=== PATIENT | female | born 1945 | race Caucasian/White ===

== ENCOUNTER 2020-09-18 03:57 | Inpatient (IN) | payer MEDICARE, OTHER ==
[~2020-09-18] VITALS: Ht 160 cm; Wt 46.3 kg
[~2020-09-18 03:57] MED LIST: ALENDRONATE SOD70 MG PO; ALLERGY10 MG PO; BENTYL 20MG TAB20 MG PO; CLOPIDOGREL75 MG PO; CYANOCOBAL1000 MCG/1 INJ; DICLOFENAC SOD100 GM TP; DYMISTA NASAL S23 GM; ESOMEPRAZOLE MA40 MG PO; FLEXERIL 10 MG10 MG PO; LOPRESSOR50 MG PO; NAMENDA PO; NORVASC2.5 MG PO; PRINIVIL20 MG PO; RANEXA500 MG PO; REMERON15 MG PO; VENTOLIN HFA 66.7 GM INH; ZOCOR20 MG PO
[2020-09-18 06:07] LABS: HEMOGLOBIN 14.7 gm/dl (12.3-15.3); RED BLOOD COUNT 4.53 M/UL (4.00-5.10)
[2020-09-18] MEDS ORDERED: LOMOTIL 2.5-0.1 EACH PO (19:19)
[2020-09-18] MEDS ORDERED: CALCIUM 500 +1 EAC1 PO (19:19)
[2020-09-18] MEDS ORDERED: NEXIUM40 MG PO (19:20)
[2020-09-18] MEDS ORDERED: PEPCID40 MG PO (19:21)
[2020-09-18] MEDS ORDERED: HYDROCODON-ACE1 EAC2 PO (19:21)
[2020-09-18] MEDS ORDERED: ZOFRAN4 MG PO (19:24)
[2020-09-18] MEDS ORDERED: NITROSTAT 0.40.4 MG SL (19:24)
[2020-09-18] MEDS ORDERED: PAXIL40 MG PO (19:24)
[2020-09-18] MEDS ORDERED: MIRAPEX0.25 MG PO (19:25)
[2020-09-18] MEDS ORDERED: RANEXA500 MG PO (19:25)
[2020-09-18] MEDS ORDERED: HYTRIN CAP 1 MG1 MG PO (19:26)
[2020-09-19 04:31] LABS: HEMOGLOBIN 12.2 gm/dl (12.3-15.3); RED BLOOD COUNT 3.85 M/UL (4.00-5.10); WHITE BLOOD COUNT 8.4 K/UL (4.5-11.0)
[2020-09-21 06:36] LABS: HEMOGLOBIN 13.5 gm/dl (12.3-15.3); RED BLOOD COUNT 4.22 M/UL (4.00-5.10); WHITE BLOOD COUNT 9.6 K/UL (4.5-11.0)
[2020-09-21 07:01] LABS: BUN/CREATININE RATIO 7 (0-10)
[2020-09-22 04:09] LABS: HEMOGLOBIN 12.5 gm/dl (12.3-15.3); RED BLOOD COUNT 3.94 M/UL (4.00-5.10); WHITE BLOOD COUNT 9.3 K/UL (4.5-11.0)
[2020-09-22 04:57] LABS: BUN/CREATININE RATIO 5 (0-10)
[2020-09-22] MEDS ORDERED: FLAGYL500 MG PO (11:10)
[2020-09-22] MEDS ORDERED: LEVOFLOXACIN500 MG PO (11:10)
[2020-09-22] MEDS ORDERED: COL-RITE100 MG PO (11:15)
--- NOTE | 2020-09-22 14:51 | NUR ---
spoke with marlo in case managment about [facility] not having patients full demographic information. she said she emailed it 13 minutes ago and they should have everything they need.
== END 2020-09-22 15:07 | disposition home or self-care (01) | DRG 389 ==
LOC: MED SURG 4 05:41
PROVIDERS: Family Medicine; Internal Medicine; ADMIT Internal Medicine
DX: K56.600 Partial intestinal obstruction, unspecified as to cause (principal); N17.9 Acute kidney failure, unspecified; I13.0 Hypertensive heart and chronic kidney disease with heart failure and stage 1 through stage 4 chronic kidney disease, or unspecified chronic kidney disease; N18.4 Chronic kidney disease, stage 4 (severe); K52.9 Noninfective gastroenteritis and colitis, unspecified; I50.9 Heart failure, unspecified; Z20.822 Contact with and (suspected) exposure to COVID-19; I25.10 Atherosclerotic heart disease of native coronary artery without angina pectoris; E87.5 Hyperkalemia; E86.1 Hypovolemia; F03.90 Unspecified dementia, unspecified severity, without behavioral disturbance, psychotic disturbance, mood disturbance, and anxiety; E78.5 Hyperlipidemia, unspecified; F17.210 Nicotine dependence, cigarettes, uncomplicated; N30.90 Cystitis, unspecified without hematuria; J44.9 Chronic obstructive pulmonary disease, unspecified; Z79.01 Long term (current) use of anticoagulants; E16.2 Hypoglycemia, unspecified; Z95.2 Presence of prosthetic heart valve; Z88.0 Allergy status to penicillin; Z88.8 Allergy status to other drugs, medicaments and biological substances; Z95.1 Presence of aortocoronary bypass graft; Z95.5 Presence of coronary angioplasty implant and graft; Z90.710 Acquired absence of both cervix and uterus; Z98.51 Tubal ligation status; Z90.49 Acquired absence of other specified parts of digestive tract; Z80.42 Family history of malignant neoplasm of prostate; Z82.49 Family history of ischemic heart disease and other diseases of the circulatory system
CPT/HCPCS: 36415; 74018; 80048; 80053; 82962; 83605; 83735; 84132; 85025; 85027; 85652; 86140; 87086; 93005; 94664; 94760; 97161; C9113; J0692; J2270; J2543; J7030

== ENCOUNTER 2020-11-03 15:55 | Emergency (ER) | payer MEDICARE, OTHER ==
[~2020-11-03 15:55] MED LIST changes: +CALCIUM 500 +1 EAC1 PO; +COL-RITE100 MG PO; +FLAGYL500 MG PO; +HYDROCODON-ACE1 EAC2 PO; +HYTRIN CAP 1 MG1 MG PO; +LEVOFLOXACIN500 MG PO; +LOMOTIL 2.5-0.1 EACH PO; +MIRAPEX0.25 MG PO; +NEXIUM40 MG PO; +NITROSTAT 0.40.4 MG SL; +PAXIL40 MG PO; +PEPCID40 MG PO; +ZOFRAN4 MG PO
[2020-11-03 16:49] LABS: HEMOGLOBIN 13.2 gm/dl (12.3-15.3); RED BLOOD COUNT 4.13 M/UL (4.00-5.10); WHITE BLOOD COUNT 5.9 K/UL (4.5-11.0)
[2020-11-03 17:09] LABS: BUN/CREATININE RATIO 11 (0-10)
== END 2020-11-03 22:53 | disposition home or self-care (01) ==
LOC: ER1 15:55
PROVIDERS: Emergency Medicine
DX: K59.00 Constipation, unspecified (principal)
CPT/HCPCS: 71045; 80053; 81001; 82550; 82553; 83605; 83690; 83874; 84484; 85025; 87040; 93005; 96374; 96375; 99284; J2270; J2405